=== PATIENT | male | born 1975 | race Caucasian/White ===

== ENCOUNTER 2016-10-28 15:44 | Emergency (ER) | payer OTHER ==
[~2016-10-28] VITALS: Ht 167.6 cm; Wt 77.1 kg
[~2016-10-28 15:44] MED LIST: CEFAZOLIN SODI IV; GLUCOPHAGE1000 M1 PO; NOVOLIN R100 UNIT/1 IV; PRINIVIL10 M1 PO; TRICOR145 M1 PO; ZOCOR40 M1 PO
--- NOTE | 2016-10-28 16:29 | ED GENERAL ADULT ---
History of Present Illness General Chief Complaint: General Adult Stated Complaint: VOMITING/DEHYDRATION Source: patient Exam Limitations: no limitations Vital Signs & Intake/Output Vital Signs & Intake/Output Vital Signs Date Time Temp Pulse Resp B/P Pulse O2 O2 Flow FiO2 Ox Delivery Rate 10/287 97.1 60 16 126/74 97 Room Air 10/28 1548 96.5 55 16 124/73 99 Room Air Allergies Coded Allergies: adhesive (RASH, ITCHY, RED 10/28/16) Reconcile Medications Amlodipine Besylate 10 MG TABLET 1 TAB PO QAM BP (Reported) Aspirin (Ecotrin*) 81 MG TABLET.DR 1 TAB PO QAM HEART/BLOOD (Reported) Atorvastatin Calcium (Lipitor) 80 MG TABLET 1 TAB PO QPM CHOLESTEROL ( Reported) Clopidogrel Bisulfate (Clopidogrel) 75 MG TABLET 1 TAB PO QPM BLOOD THINNER ( Reported) Cyproheptadine HCl 4 MG TABLET 1 TAB PO TID PRN GI (Reported) Dextrose (Glucose) 1 EACH TAB.CHEW 1 TAB PO PRN DM (Reported) Ergocalciferol (Vitamin D2) (Vitamin D2) 50,000 UNIT CAPSULE 1 CAP PO QSUN SUPPLEMENT (Reported) Fenofibrate (Lofibra) 160 MG TABLET 1 TAB PO QAM CHOLESTEROL/TRIGLYCERIDES ( Reported) Ferrous Sulfate (IRON) 325 MG (65 MG IRON) TABLET 1 TAB PO QAM SUPPLEMENT ( Reported) Insulin Aspart (Novolog) 100 UNIT/ML VIAL DM (Reported) Insulin Detemir (Levemir) 100 UNIT/ML VIAL 35 UNITS SC QHS DM (Reported) Isosorbide Mononitrate (Isosorbide Mononitrate ER) 120 MG TAB.ER.24H 1 TAB PO QAM HEART (Reported) Lisinopril (Prinivil) 20 MG TABLET 1 TAB PO QAM BP (Reported) Metoprolol Tartrate 25 MG TABLET 12.5 MG PO BID HEART/BP (Reported) [place]-3 Fatty Acids ([place]-3) (Unknown Strength) CAPSULE 2 TAB PO BID SUPPLEMENT (Reported) Ondansetron HCl (Zofran) 8 MG TABLET 1 TAB PO Q8H PRN N/V (Reported) Scopolamine Hydrobromide (Transderm-Scop) 1.5MG/3DAY PATCH.TD.3 1 PAT TOP Q3D NAUSEA (Reported) apply to the hairless area behind 1 ear at least 4 hours before effect is required; reapply every 3 days as needed Triage Note: PT WITH N/V THAT STARTED SUNDAY OFF AND ON. PT HAD COLD S/S SO HE HAS BEEN GETTING TREATED FOR THAT TAKING COLD MEDICATION. PT VOMITED ABOUT 1 HOUR AGO. Triage Nurses Notes Reviewed? yes Onset: Abrupt Duration: day(s): Timing: recent history No Modifying Factors: none HPI: 41-year-old male with a complicated past medical history comes into emergency room for further evaluation because yesterday he felt unsteady on his feet and his gait was off. Patient was recently diagnosed in the spring of this past year with a carotid artery dissection on the left side that is chronically be a monitored and unchanged. Patient also has type 1 diabetes. 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 Patient has been wearing a scopolamine patch every day. Patient reports that he took the patch off and did not wear it on Sunday. This is when his symptoms started. As soon as he put the patch back on this morning his symptoms resolved. Patient also has some chronic kidney disease. Patient is currently asymptomatic. Denies any pain currently. Patient is able to ambulate with no difficulty he reports. Due to patient's significant past medical history he came in because he wanted some basic blood work done. (TRICE DICKENS) Past History Travel History Traveled to [place] past 21 day No Medical History Any Pertinent Medical History? see below for history Cardiovascular: hypertension, hyperlipidemia, Hypertriglyceridemia CAROTID DISECTION Gastrointestinal: NAUSEA SYNDROME Endocrine: diabetes History of MRSA: No History of VRE: No History of CDIFF: No Surgical History Surgical History: non-contributory Psychosocial History Who do you live with Patient/Self Services at Home None What is your primary language Cambodian Tobacco Use: Never used ETOH Use: denies use Illicit Drug Use: denies illicit drug use Family History Family History, If Any: FATHER Relation not specified for: FH: diabetes mellitus FH: hypertension Hx Contributory? No (TRICE DICKENS) Review of Systems Review of Systems Constitutional: Reports: no symptoms. EENTM: Reports: no symptoms. Respiratory: Reports: no symptoms. Cardiovascular: Reports: no symptoms. GI: Reports: no symptoms. Genitourinary: Reports: no symptoms. Musculoskeletal: Reports: no symptoms. Skin: Reports: no symptoms. Neurological/Psychological: Reports: see HPI. Hematologic/Endocrine: Reports: no symptoms. Immunologic/Allergic: Reports: no symptoms. All Other Systems: Reviewed and Negative (TRICE DICKENS) Physical Exam Physical Exam General Appearance: well developed/nourished, no apparent distress, alert, awake Head: atraumatic, normal appearance Eyes: Bilateral: PERRL, EOMI. Ears, Nose, Throat: normal pharynx, normal ENT inspection, hearing grossly normal Neck: normal inspection, supple, full range of motion Respiratory: normal breath sounds, chest non-tender, no respiratory distress Cardiovascular: regular rate/rhythm Back: normal inspection Extremities: normal inspection, normal range of motion, no edema Neurologic/Psych: awake, alert, oriented x 3, normal gait, normal mood/affect Skin: intact, normal color Core Measures ACS in differential dx? No CVA/TIA Diagnosis: No Severe Sepsis Present: No Septic Shock Present: No (TRICE DICKENS) Progress Differential Diagnoses I considered the following diagnoses in my evaluation of the patient: CVA, vertigo, electrolyte imbalance, cranial bleed, cardiac arrhythmia, Plan of Care: Orders Procedure Date/time Status TROPONIN LEVEL 10/28 1718 Complete EKG 10/28 1629 Active URINALYSIS 10/28 1554 Complete LACTIC ACID 10/28 1554 Complete COMPREHENSIVE METABOLIC PANEL 10/28 1554 Complete CBC WITHOUT DIFFERENTIAL 10/28 1554 Complete ACETONE 10/28 1554 Complete Laboratory Tests 10/28/16 1854: Lactic Acid Cancelled 10/28/16 1849: Urinalysis LIGHT H, Urine Color YEL, Urine Clarity CLEAR, Urine pH 6.0, Ur Specific [place] >= 1.030, Urine Protein 100 H, Urine Ketones NEG, Urine Nitrite NEG, Urine Bilirubin NEG, Urine Urobilinogen 0.2, Ur Leukocyte Esterase NEG, Ur Microscopic SEDIMENT EXAMINED, Urine RBC 1-3, Urine WBC 1-3 H, Ur Epithelial Cells RARE, Urine Hemoglobin TRACE-INTACT H, Urine Glucose NEG 10/28/16 1718: Anion Gap 16, Estimated GFR 19 L, BUN/Creatinine Ratio 12.2, Glucose 165 H, Lactic Acid 1.1, Calcium 9.0, Total Bilirubin 0.4, AST 32, ALT 30, Alkaline Phosphatase 36, Troponin I 0.02, Total Protein 8.1, Albumin 4.5, Globulin 3.6, Albumin/Globulin Ratio 1.3, CBC w Diff NO MAN DIFF REQ, RBC 3.72 L, MCV 83.7, MCH 27.8, RDW 14.0, MPV 8.6, Gran % 75.5 H, Lymphocytes % 10.0 L, Monocytes % 13.9 H, Eosinophils % 0.2, Basophils % 0.4, Absolute Granulocytes 5.5, Absolute Lymphocytes 0.7 L, Absolute Monocytes 1.0 H, Absolute Eosinophils 0, Absolute Basophils 0, PUBS MCHC 33.2, Acetone Level NEGATIVE 10/28/16 1637: Troponin I Cancelled Initial ED EKG: normal p-waves, normal QRS complex, normal sinus rhythm, rate ( 53) (PAMELA HAMMONDS,TRICE) Departure Departure Disposition: HOME OR SELF CARE Condition: Stable Clinical Impression Primary Impression: Ataxic gait Referrals: BELINDA LAFLEUR,YANELIS Angel (PCP/Family) Additional Instructions: Follow-up with your primary care doctor. Return if any other concerns worsening symptoms. Please go over all results of today's visit with your primary care doctor. Contact your primary care doctor to let them know you were here in the emergency room. There may be nonspecific findings which may not be related to your visit today here in the emergency room but may require further evaluation and chronic monitoring by your primary care doctor. If you had a laceration today the chance of foreign body always remains. You should follow-up with your primary care doctor for recheck in 3-5 days for a wound check. If you had an x-ray done there is a chance that a fracture could have been missed on initial read and you should follow-up with your primary care doctor for repeat x-rays if symptoms persist. If your blood pressure was elevated here in the emergency room please have rechecked by her primary care doctor within the next 48 hours by your primary care doctor. If you were prescribed a narcotic here in the emergency room or any type of controlled substances you're not allowed to drive while taking this medication or operate any type of heavy machinery. Narcotics can make you feel lightheaded dizziness nausea and can cause constipation. You may need to pickle pumper a stool softener. Thank you for choosing [facility] emergency room. Please return to the emergency room immediately if you have any other concerns worsening of symptoms. Departure Forms: Customer Survey General Discharge Information Comments 10/28/2016 10:17:38 PM Patient's ataxic gait that was occurring yesterday completely resolved today. Patient has no symptoms currently. Patient has a lot of chronic medical issues. Patient is chronically unhealthy. There are no acute changes in regards to patient's baseline here in the emergency room. Patient can follow-up with primary care doctor. Return if any other concerns worsening symptoms. Case discussed with Dr. Rincon. Comparing the patient's labs to his previous his creatinine is only slightly higher than previous (TRICE DICKENS) PA/[facility] Co-Sign Statement Statement: ED Attending supervision documentation- [] I saw and evaluated the patient. I have also reviewed all the pertinent lab results and diagnostic results. I agree with the findings and the plan of care as documented in the PA's/[facility]'s documentation. [X] I have reviewed the ED Record and agree with the PA's/[facility]'s documentation. [] Additions or exceptions (if any) to the PAs/[facility]'s note and plan are summarized below: [] (JAMES LAFLEUR,ALAN Avila) Critical Care Note Critical Care Note Critical Care Time: non-applicable (TRICE DICKENS)
[2016-10-28] MEDS ORDERED: TRANSDERM-SCOP1 EACH TOP (16:51)
[2016-10-28] MEDS ORDERED: OMEGA-31000 M1 PO (16:51)
[2016-10-28] MEDS ORDERED: LOFIBRA160 M1 PO (16:52)
[2016-10-28] MEDS ORDERED: PRINIVIL20 M1 PO (16:52)
[2016-10-28] MEDS ORDERED: METOPROLOL TART25 M1 PO (16:53)
[2016-10-28] MEDS ORDERED: VITAMIN D250000 UNIT PO (16:53)
[2016-10-28] MEDS ORDERED: AMLODIPINE BESY10 M1 PO (16:53)
[2016-10-28] MEDS ORDERED: ISOSORBIDE MON120 M1 PO (16:54)
[2016-10-28] MEDS ORDERED: CLOPIDOGREL75 M1 PO (16:54)
[2016-10-28] MEDS ORDERED: LIPITOR80 M1 PO (16:55)
[2016-10-28] MEDS ORDERED: ASPIRIN EC81 M1 PO (16:57)
[2016-10-28] MEDS ORDERED: IRON325 M3 PO (16:58)
[2016-10-28] MEDS ORDERED: NOVOLOG100 UNIT/2 SC (16:59)
[2016-10-28] MEDS ORDERED: LEVEMIR100 UNIT/1 SC (16:59)
[2016-10-28] MEDS ORDERED: CYPROHEPTADINE H4 M1 PO (17:00)
[2016-10-28] MEDS ORDERED: GLUCOSE1 EACH PO (17:00)
[2016-10-28] MEDS ORDERED: ZOFRAN8 M1 PO (17:01)
[2016-10-28 17:32] LABS: ABSOLUTE BASOPHIL COUNT 0 /CUMM (0.0-0.2); ABSOLUTE EOSINOPHIL COUNT 0 /CUMM (0.0-0.7); ABSOLUTE GRANULOCYTE CT 5.5 /CUMM (1.4-6.5); ABSOLUTE LYMPH COUNT 0.7 /CUMM (1.2-3.4); BASOPHIL % 0.4 % (0.0-2.0); EOSINOPHIL % 0.2 % (0-5); GRANULOCYTE % 75.5 % (42.2-75.2); HEMATOCRIT 31.1 % (42-52); MEAN CORPUSCULAR HGB 27.8 PG (27.0-31.0); MEAN CORPUSCULAR HGB CONC 33.2 G/DL (33.0-37.0); MEAN CORPUSCULAR VOLUME 83.7 FL (80.0-94.0); MEAN PLATELET VOLUME 8.6 FL (7.4-10.4); PLATELET COUNT 312 /CUMM (130-400); RED BLOOD CELL CT 3.72 /CUMM (4.70-6.10); WHITE BLOOD CELL COUNT 7.3 /CUMM (4.8-10.8)
[2016-10-28 19:47] VITALS: BP 126/74
== END 2016-10-28 19:48 ==
LOC: ERH 15:44
PROVIDERS: Physician Assistant Medical
DX: R26.0 Ataxic gait (principal)
CPT/HCPCS: 81001; 93005; 93010